=== PATIENT | female | born 1995 | race Caucasian/White ===

== ENCOUNTER 2016-06-28 20:12 | Emergency (ER) | payer OTHER ==
[2016-06-28 21:41] LABS: MEAN CORPUSCULAR HEMOGLOBIN 30.6 pg (27.0-33.0); MEAN CORPUSCULAR HGB CONC 34.3 g/dl (32.0-36.5); MEAN CORPUSCULAR VOLUME 89.3 fl (80.0-96.0); RED CELL DISTRIBUTION WIDTH 11.9 % (11.5-14.5)
--- NOTE | 2016-06-28 22:40 | REPUSA ---
Clinical history: bleeding. Findings: Real-time transabdominal ultrasound images of the pelvis were obtained. A single intrauteri ne gestation is noted. Mean sac diameter measures 27.3 mm. pole measures 5.6 mm. However, no ca rdiac activity is appreciated at this time. An enlarged yolk sac is noted measuring 17.4 mm. There is a subchorionic hemorrhage along the posterior fundal aspect measuring 3.4 x 1.1 x 2.0 cm. The uterus demonstrates normal echotexture and echogenicity. The right ovary measures 4.4 x 3.5 x 2.8 cm. A 2.1 cm simple cyst is seen in the right ovary. The left ovary measures 3.7 x 2.0 x 2.6 cm. No adnexal ma sses are seen. Color Doppler flow is seen within both ovaries. There is no evidence of free fluid. Impression: 1. Intrauterine gestation measuring 6 weeks 2 days by ultrasound measurements, without cardiac activi ty. Findings could represent early versus a missed . Follow-up with serial serum be ta hCG levels is recommended for further evaluation. 2. Posterior fundal subchorionic hemorrhage. 3. Right ovarian corpus luteum cyst.
[2016-06-29] MEDS ORDERED: ACETAMINOPHEN 325 MG TAB As Ordered ONE (01:29)
--- NOTE | 2016-06-29 01:54 | EDDOCDS ---
Physician Documentation [facility] Name: Heidi Munguia Age: 21 yrs Sex: Female : 1995 Arrival Date: 06/28/2016 Time: 20:12 Bed 11 Private MD: Other - Complete Info On Cds Disposition: 06/28 23:48 Critical Care: Critical care not applicable. le Disposition: 06/28/16 23:43 Discharged to Home/Self Care. Impression: Threatened . - Condition is Stable. - Discharge Instructions: Threatened Miscarriage, Pelvic Rest. - Medication Reconciliation, Local Pharmacy Hours form. - Follow up: Burton Pearson, OB; When: Call to arrange an appointment; Reason: Recheck today's complaints, Continuance of care. - Problem is new. - Symptoms are unchanged. - Notes: Keep hydrated Return to the ED for worsening abdominal, heavy vaginal bleeding (saturating a pad-or more- an hour for 3 consecutive hours) fever, dizziness or any other concerns Call [facility] first thing Thursday to schedule follow-up appointment Historical: - Allergies: no known allergies; - Home Meds: 1. Vitamin Oral tab 1 tab once daily (Last dose: 06/27/2016) - PMHx: none; - PSHx: none; - Social history: Smoking status: Patient states was never smoker of tobacco. No barriers to communication noted, The patient speaks fluent Maori, Speaks appropriately for age. - Family history: Not pertinent. - : The pt / caregiver states he / she is not on anticoagulants. Home medication list is obtained from the patient. - Exposure Risk Screening:: None identified. 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 3 in. (160.02 cm) (R); Pain 3/10; 06/29 00:30 BP 133 / 83; Pulse 75; Resp 18; Temp 99.9(TE); Pulse Ox 98% on R/A; Pain 7/10; gregory 01:30 BP 106 / 56; Pulse 74; Resp 18; Pulse Ox 99% on R/A; Pain 7/10; js15 04 20:14 Body Mass Index 19.31 (49.44 kg, 160.02 cm) gr2 MDM: 06/28 21:24 Undress patient appropriately for examination ordered. le 21:24 Set up pelvic ordered. le 21:25 Complete Blood Count Ordered. EDMS 21:25 Hcg, Serum Quantitative Ordered. EDMS 21:25 Type & Screen Ordered. EDMS 21:25 GC & Chlamydia Amplification Ordered. EDMS 21:25 Wet Prep Ordered. EDMS 21:26 US 1st trimester Ordered. EDMS 21:59 Complete Blood Count Reviewed. le 21:59 Wet Prep Reviewed. le 22:30 Financial registration complete. gb 22:36 [facility] Payment Agreement was scanned into [employer] and attached to record. gb 22:43 Hcg, Serum Quantitative Reviewed. le 22:43 Type & Screen Reviewed. le 22:44 -RhoGAM Ultra-Filtered Plus 300 mcg IM once ordered. le 23:04 RHOGAM Ordered. EDMS 06/29 00:56 Other: RHOGAM LAB PAPERWORK was scanned into [employer] and attached to record. ml3 01:11 GC & Chlamydia Amplification Reviewed. cs11 01:11 US 1st trimester Reviewed. cs11 01:13 Hemoglobin & Hematocrit Ordered. EDMS 01:20 Acetaminophen Tablet 650 mg PO once ordered. js15 Administered Medications: 00:23 Drug: -RhoGAM Ultra-Filtered Plus 300 mcg [RhoGAM Ultra-Filtered PLUS 1,500 unit (300 js15 mcg) intramuscular syringe (300 mcg)] Route: IM; Site: right gluteus; 01:00 Follow up: Response: No Adverse Reaction js15 01:19 CANCELLED (Other Intervention Used): Acetaminophen Tablet 650 mg PO once js15 01:32 Drug: Acetaminophen 650 mg [acetaminophen 325 mg tablet (2 tabs)] Route: PO; js15 01:53 Follow up: Response: Pt left department before re-evaluation is appropriate js15 Signatures: Dispatcher [employer] EDMS Kathy Marks, Reg Reg gb MiladJoeKristin, Refuse And Recycling Worker Unit ml3 Danisha Alcantar, SIGNAL REPAIRER SIGNAL REPAIRERCarolyn Topete,PEDRO RN dsJuventino Elliott, DO cs11 Fatuma Fisher RN RN js15 The chart was reviewed and I authenticate all verbal orders and agree with the evaluation and treatment provided.Corrections: (The following items were deleted from the chart) 01:19 01:19 Acetaminophen Tablet 650 mg PO once ordered. js15 js15 Attachments: 06/28 22:36 [facility] Payment Agreement gb MTDD
--- NOTE | 2016-06-29 01:55 | EDDOCDS ---
Nurse's Notes [facility] Name: Heidi Munguia Age: 21 yrs Sex: Female : 1995 Arrival Date: 06/28/2016 Time: 20:12 Bed 11 Private MD: Other - Complete Info On Cds Diagnosis: Threatened Presentation: 06/28 20:16 Presenting complaint: Patient states: 8 weeks . pt states she has been bleeding dsf since last Thursday. pt states the beginning was spotting and now its like her period with period cramps. Risk factors: The patient reports no loss of conciousness prior to arrival. This patient has not had a hysterectomy. This patient has not begun menopause. Adult Sepsis Screening: The patient does not have new or worsening altered mentation. Patient's respiratory rate is less than 22. Systolic blood pressure is greater than 100. Patient has a qSOFA score of 0- Negative Sepsis Screen. Suicide/Homicide risk assessment- the patient denies having any suicidal and/or homicidal ideations and does not present with any other emotional, behavioral or mental health complaints. 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 Transition of care: patient was not received from another setting of care. 20:16 Acuity: KARLI Level 3 dsf 20:16 Method Of Arrival: Walkin/Carried/Asstd dsf Triage Assessment: 20:17 General: Appears in no apparent distress, Behavior is appropriate for age, cooperative. dsf Pain: Location: right lower quadrant and left lower quadrant Pain currently is 4 out of 10 on a pain scale. Quality of pain is described as crampy. HIV screening NA for this visit active duty . : Reports vaginal bleeding that is heavy flow dark red. 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 Vitamin Oral tab 1 tab once daily (Last dose: 06/27/2016) - PMHx: none; - PSHx: none; - Social history: Smoking status: Patient states was never smoker of tobacco. No barriers to communication noted, The patient speaks fluent Korean, Speaks appropriately for age. - Family history: Not pertinent. - : The pt / caregiver states he / she is not on anticoagulants. Home medication list is obtained from the patient. - Exposure Risk Screening:: None identified. Screenin:05 Screening information is obtained from the patient. Fall risk: No risks identified. js15 Assistance ADL's: requires no assistance with activities of daily living. Abuse/DV Screen: The patient / caregiver reports he/she is: not in a situation that causes fear, pain or injury. Nutritional screening: No deficits noted. Advance Directives: There is no active DNR order. home support is adequate. Assessment: 22:04 General: Appears in no apparent distress, Behavior is appropriate for age, cooperative. js15 Pain: Location: left lower quadrant and right lower quadrant Quality of pain is described as crampy. Neurological: Level of Consciousness is awake, alert, obeys commands, Oriented to person, place, time. Respiratory: Airway is patent Respiratory effort is even, unlabored, Respiratory pattern is regular, symmetrical. : Reports vaginal bleeding that is spotty. Derm: Skin is pink, warm & dry. 23:00 Reassessment: Patient appears in no apparent distress at this time. Pt resting on js15 stretcher, family at bedside; awake and alert; respirations even and unlabored; skin pink, warm, dry. 23:30 Reassessment: Pt states that she went to restroom and states "I think I just js15 miscarried. I passed a really big clot and tissue with a little ball of something in the middle.". Danisha Katharine MEDIA RELATIONS INTERN notified. 06/29 00:35 General: Appears in no apparent distress, Behavior is appropriate for age, cooperative. js15 General: Pt states that she is still continuing to saturate pads (2 in 1.5 hrs). This display card writer witnesses large clot and saturated pad before changing to a clean pad. awake and alert, talking to at bedside. will continue to monitor before discharge. Neurological: Level of Consciousness is awake, alert, obeys commands, Oriented to person, place, time, Reports lightheadedness. Cardiovascular: Capillary refill < 3 seconds. Respiratory: Airway is patent Respiratory effort is even, unlabored, Respiratory pattern is regular, symmetrical. Derm: Skin is pink, warm & dry. 01:30 Reassessment: Patient appears in no apparent distress at this time. Patient states js15 feeling better. Patient states symptoms have improved. Pt states that bleeding has lessened; this display card writer witnessed blood clot and small amount of bleeding onto pad; pt awake and alert with steady gait; respirations even and unlabored; skin pink, warm, dry. Vital Signs: 06/28 20:14 BP 132 / 75; Pulse 77; Resp 18 S; Temp 98.7(O); Pulse Ox 99% on R/A; Weight 49.44 kg gr2 (R); Height 5 ft. 3 in. (160.02 cm) (R); Pain 3/10; 06/29 00:30 BP 133 / 83; Pulse 75; Resp 18; Temp 99.9(TE); Pulse Ox 98% on R/A; Pain 7/10; gregory 01:30 BP 106 / 56; Pulse 74; Resp 18; Pulse Ox 99% on R/A; Pain 7/10; js15 06/28 20:14 Body Mass Index 19.31 (49.44 kg, 160.02 cm) gr2 Vitals: 06/28 20:14 Log In Time: June 28, 2016 at 20:14. gr2 ED Course: 20:14 Patient visited by Kristen Coffman. gr2 20:14 Other - Complete Info On Cds is Private Physician. gr2 20:14 Patient moved to Waiting gr2 20:15 Patient visited by Kristen Coffman. gr2 20:15 Patient moved to Pre RCE gr2 20:17 Triage Initiated dsf 21:07 [facility] le 21:08 Patient moved to 11 cz 21:28 Patient visited by Amisha Shultz PCA. gregory 21:30 Patient visited by Danisha Alcantar FNP. le 21:30 Patient visited by Danisha Alcantar FNP. le 21:30 The patient / caregiver is instructed regarding the plan of care and ED course. js15 21:38 Complete Blood Count Sent. js15 21:38 Hcg, Serum Quantitative Sent. js15 21:38 Type & Screen Sent. js15 22:07 Patient visited by Fatuma Fisher RN. js15 22:33 Patient name changed from Heidi\\S\\A\\S\\Munguia\\S\\ to Heidi\\S\\Nelli\\S\\Munguia. EDMS 22:36 [facility] Payment Agreement was scanned into [employer] and attached to record. gb 22:59 US 1st trimester Returned. EDMS 23:16 Patient visited by Amisha Shultz PCA. gregory 23:43 Burton Pearson OB is Referral Physician. le 23:44 RHOGAM Sent. js15 02 00:31 Patient visited by Amisha Shultz PCA. gregory 00:56 Other: RHOGAM LAB PAPERWORK was scanned into [employer] and attached to record. ml3 01:20 Hemoglobin & Hematocrit Sent. js15 01:30 No IV's were initiated during this patient's visit. No procedures done that require js15 assistance. Administered Medications: 00:23 Drug: -RhoGAM Ultra-Filtered Plus 300 mcg [RhoGAM Ultra-Filtered PLUS 1,500 unit (300 js15 mcg) intramuscular syringe (300 mcg)] Route: IM; Site: right gluteus; 01:00 Follow up: Response: No Adverse Reaction js15 01:19 CANCELLED (Other Intervention Used): Acetaminophen Tablet 650 mg PO once js15 01:32 Drug: Acetaminophen 650 mg [acetaminophen 325 mg tablet (2 tabs)] Route: PO; js15 01:53 Follow up: Response: Pt left department before re-evaluation is appropriate js15 Order Results: Lab Order: Complete Blood Count; SPEC'M 06/28/16 21:35 Test: WHITE BLOOD COUNT; Value: 9.0; Range: 4.0-10.0; Units: K/mm3; Status: F Test: RED BLOOD COUNT; Value: 4.03; Range: 4.00-5.40; Units: M/mm3; Status: F Test: HEMOGLOBIN; Value: 12.3; Range: 12.0-16.0; Units: g/dl; Status: F Test: HEMATOCRIT; Value: 36.0; Range: 36.0-47.0; Units: %; Status: F Test: MEAN CORPUSCULAR VOLUME; Value: 89.3; Range: 80.0-96.0; Units: fl; Status: F Test: MEAN CORPUSCULAR HEMOGLOBIN; Value: 30.6; Range: 27.0-33.0; Units: pg; Status: F Test: MEAN CORPUSCULAR HGB CONC; Value: 34.3; Range: 32.0-36.5; Units: g/dl; Status: F Test: RED CELL DISTRIBUTION WIDTH; Value: 11.9; Range: 11.5-14.5; Units: %; Status: F Test: PLATELET COUNT, AUTOMATED; Value: 292; Range: 150-450; Units: k/mm3; Status: F Lab Order: Hcg, Serum Quantitative; [facility] 06/28/16 21:35 Test: HCG, SERUM QUANTITATIVE; Value: [id number]; Units: MIU/ML; Status: F Test Note: ; GESTATIONAL AGE APPROXIMATE HCG RANGE (MIU/ML) 0.2-1 WEEK 5-50 1-2 WEEKS 50-500 2-3 WEEKS 100-5,000 3-4 WEEKS 500-10,000 4-5 WEEKS 1,000-50,000 5-6 WEEKS 10,000-100,000 6-8 WEEKS 15,000-200,000 2-3 MONTHS 10,000-100,000 NON FEMALES LESS THAN 3.0 Patient samples may contain human heterophilic antibodies that could react with immunoassays to give falsely elevated or depressed results. This assay has been designed to minimize interference from heterophilic antibodies. Elevated hCG levels have also been associated with trophoblastic disease and nontrophoblastic neoplasms. The possibility of having these diseases should be considered before a diagnosis of is made. This test is not intended for use as a surrogate marker for aiding in the diagnosis or monitoring the treatment of cancer patients. Siemens Woodruff methodology. Lab Order: Type & Screen; [facility] 06/28/16 21:35 Test: BLOOD TYPE; Value: O NEG; Status: F Test: AB SCREEN (INDIRECT LIV)GEL; Value: NEGATIVE; Status: F Lab Order: GC & Chlamydia Amplification; [facility] 06/28/16 21:45 Test: CHLAMYDIA DNA AMPLIFICATION; Value: NEGATIVE; Range: NEGATIVE; Status: F Test: GC DNA AMPLIFICATION; Value: NEGATIVE; Range: NEGATIVE; Status: F Lab Order: Wet Prep; [facility] 06/28/16 21:45 Test: WET PREP; Value: WET PREP RESULT; Status: F Test: WET PREP; Value: FEW WBC; Status: F Test: WET PREP; Value: MODERATE RBC; Status: F Test: WET PREP; Value: FEW EPITHELIAL CELLS PRESENT; Status: F Lab Order: Hemoglobin & Hematocrit; SPEC'M 06/29/16 01:16 Test: HEMOGLOBIN; Value: 12.6; Range: 12.0-16.0; Units: g/dl; Status: F Test: HEMATOCRIT; Value: 36.9; Range: 36.0-47.0; Units: %; Status: F Radiology Order: US 1st trimester Test: US 1st trimester REASON FOR EXAMINATION: Bleeding; ; Clinical history: bleeding.; Findings: Real-time transabdominal ultrasound images of the pelvis were obtained. A single intrauteri; ne gestation is noted. Mean sac diameter measures 27.3 mm. pole measures 5.6 mm. However, no ca; rdiac activity is appreciated at this time. An enlarged yolk sac is noted measuring 17.4 mm. There is; a subchorionic hemorrhage along the posterior fundal aspect measuring 3.4 x 1.1 x 2.0 cm. The uterus; demonstrates normal echotexture and echogenicity. The right ovary measures 4.4 x 3.5 x 2.8 cm. A 2.1; cm simple cyst is seen in the right ovary. The left ovary measures 3.7 x 2.0 x 2.6 cm. No adnexal ma; sses are seen. Color Doppler flow is seen within both ovaries. There is no evidence of free fluid.; Impression:; 1. Intrauterine gestation measuring 6 weeks 2 days by ultrasound measurements, without cardiac activi; ty. Findings could represent early versus a missed . Follow-up with serial serum be; ta hCG levels is recommended for further evaluation.; 2. Posterior fundal subchorionic hemorrhage.; 3. Right ovarian corpus luteum cyst.; ; Outcome: 06/28 23:43 Discharge ordered by Provider. le 06/29 00:49 Ultrasound Study completed. js15 01:30 Discharge Assessment: Patient awake, alert and oriented x 3. No cognitive and/or js15 functional deficits noted. Patient verbalized understanding of disposition instructions. patient administered narcotics - no. The following High Risk Discharge criteria are identified: None. Discharged to home ambulatory, with family. Condition: stable. Discharge instructions given to patient, Instructed on discharge instructions, follow up and referral plans. Demonstrated understanding of instructions, Pt was receptive of discharge instructions/ teaching. Instructed on Rhogam card. Property sent home with patient. 01:53 Patient left the ED. js15 Signatures: Dispatcher [employer] EDJuan Desai, RN RN cz Kathy Marks, Reg Reg gb Hilary Stinson, Spinning Frame Tender Unit ml3 Danisha Alcantar, MEDIA RELATIONS INTERN MEDIA RELATIONS INTERN Amisha Cornejo, PROTECTION CHIEF INDUSTRIAL PLANT PROTECTION CHIEF INDUSTRIAL PLANT Carolyn Maldonado,RN RN dsf Kristen Coffman gr2 Fatuma Fisher,RN RN js15 MTDD
--- NOTE | 2016-07-01 02:54 | EDDOCDS ---
Physician Documentation [facility] Name: Heidi Munguia Age: 21 yrs Sex: Female : 1995 Arrival Date: 06/28/2016 Time: 20:12 Bed 11 Private MD: Other - Complete Info On Cds Disposition: 06/28 23:48 Critical Care: Critical care not applicable. le Disposition: 06/28/16 23:43 Discharged to Home/Self Care. Impression: Threatened . - Condition is Stable. - Discharge Instructions: Threatened Miscarriage, Pelvic Rest. - Medication Reconciliation, Local Pharmacy Hours form. - Follow up: Burton Pearson, OB; When: Call to arrange an appointment; Reason: Recheck today's complaints, Continuance of care. - Problem is new. - Symptoms are unchanged. - Notes: Keep hydrated Return to the ED for worsening abdominal, heavy vaginal bleeding (saturating a pad-or more- an hour for 3 consecutive hours) fever, dizziness or any other concerns Call [facility] first thing Thursday to schedule follow-up appointment Historical: - Allergies: no known allergies; - Home Meds: 1. Vitamin Oral tab 1 tab once daily (Last dose: 06/27/2016) - PMHx: none; - PSHx: none; - Social history: Smoking status: Patient states was never smoker of tobacco. No barriers to communication noted, The patient speaks fluent Hungarian, Speaks appropriately for age. - Family history: Not pertinent. - : The pt / caregiver states he / she is not on anticoagulants. Home medication list is obtained from the patient. - Exposure Risk Screening:: None identified. 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 3 in. (160.02 cm) (R); Pain 3/10; 06/29 00:30 BP 133 / 83; Pulse 75; Resp 18; Temp 99.9(TE); Pulse Ox 98% on R/A; Pain 7/10; gregory 01:30 BP 106 / 56; Pulse 74; Resp 18; Pulse Ox 99% on R/A; Pain 7/10; js15 04 20:14 Body Mass Index 19.31 (49.44 kg, 160.02 cm) gr2 MDM: 06/28 21:24 Undress patient appropriately for examination ordered. le 21:24 Set up pelvic ordered. le 21:25 Complete Blood Count Ordered. EDMS 21:25 Hcg, Serum Quantitative Ordered. EDMS 21:25 Type & Screen Ordered. EDMS 21:25 GC & Chlamydia Amplification Ordered. EDMS 21:25 Wet Prep Ordered. EDMS 21:26 US 1st trimester Ordered. EDMS 21:59 Complete Blood Count Reviewed. le 21:59 Wet Prep Reviewed. le 22:30 Financial registration complete. gb 22:36 [facility] Payment Agreement was scanned into [employer] and attached to record. gb 22:43 Hcg, Serum Quantitative Reviewed. le 22:43 Type & Screen Reviewed. le 22:44 -RhoGAM Ultra-Filtered Plus 300 mcg IM once ordered. le 23:04 RHOGAM Ordered. EDMS 06/29 00:56 Other: RHOGAM LAB PAPERWORK was scanned into [employer] and attached to record. ml3 01:11 GC & Chlamydia Amplification Reviewed. cs11 01:11 US 1st trimester Reviewed. cs11 01:13 Hemoglobin & Hematocrit Ordered. EDMS 01:20 Acetaminophen Tablet 650 mg PO once ordered. js15 10:59 T-Sheet-- Draft Copy was scanned into [employer] and attached to record. gb Administered Medications: 00:23 Drug: -RhoGAM Ultra-Filtered Plus 300 mcg [RhoGAM Ultra-Filtered PLUS 1,500 unit (300 js15 mcg) intramuscular syringe (300 mcg)] Route: IM; Site: right gluteus; 01:00 Follow up: Response: No Adverse Reaction js15 01:19 CANCELLED (Other Intervention Used): Acetaminophen Tablet 650 mg PO once js15 01:32 Drug: Acetaminophen 650 mg [acetaminophen 325 mg tablet (2 tabs)] Route: PO; js15 01:53 Follow up: Response: Pt left department before re-evaluation is appropriate js15 Signatures: Dispatcher [employer] EDMS Kathy Marks, Reg Reg gb Hilary Stinson, Gold Leaf Gilder Unit ml3 Danisha Alcantar, NUCLEAR OPERATIONS SPECIALIST NUCLEAR OPERATIONS SPECIALISTCarolyn Topete,RN RN dsJuventino Elliott, DO cs11 Fatuma FisherRN RN js15 The chart was reviewed and I authenticate all verbal orders and agree with the evaluation and treatment provided.Corrections: (The following items were deleted from the chart) 01:19 01:19 Acetaminophen Tablet 650 mg PO once ordered. js15 js15 Attachments: 06/28 22:36 [facility] [place] Agreement gb 10:59 T-Sheet-- Draft Copy gb Chart Complete MTDD
--- NOTE | 2016-07-01 02:54 | EDDOCDS ---
Physician Documentation [facility] Name: Heidi Munguia Age: 21 yrs Sex: Female : 1995 Arrival Date: 06/28/2016 Time: 20:12 Bed 11 Private MD: Other - Complete Info On Cds Disposition: 06/28 23:48 Critical Care: Critical care not applicable. le Disposition: 06/28/16 23:43 Discharged to Home/Self Care. Impression: Threatened . - Condition is Stable. - Discharge Instructions: Threatened Miscarriage, Pelvic Rest. - Medication Reconciliation, Local Pharmacy Hours form. - Follow up: Burton Pearson, OB; When: Call to arrange an appointment; Reason: Recheck today's complaints, Continuance of care. - Problem is new. - Symptoms are unchanged. - Notes: Keep hydrated Return to the ED for worsening abdominal, heavy vaginal bleeding (saturating a pad-or more- an hour for 3 consecutive hours) fever, dizziness or any other concerns Call [facility] first thing Thursday to schedule follow-up appointment Historical: - Allergies: no known allergies; - Home Meds: 1. Vitamin Oral tab 1 tab once daily (Last dose: 06/27/2016) - PMHx: none; - PSHx: none; - Social history: Smoking status: Patient states was never smoker of tobacco. No barriers to communication noted, The patient speaks fluent Thai, Speaks appropriately for age. - Family history: Not pertinent. - : The pt / caregiver states he / she is not on anticoagulants. Home medication list is obtained from the patient. - Exposure Risk Screening:: None identified. 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 3 in. (160.02 cm) (R); Pain 3/10; 06/29 00:30 BP 133 / 83; Pulse 75; Resp 18; Temp 99.9(TE); Pulse Ox 98% on R/A; Pain 7/10; gregory 01:30 BP 106 / 56; Pulse 74; Resp 18; Pulse Ox 99% on R/A; Pain 7/10; js15 04 20:14 Body Mass Index 19.31 (49.44 kg, 160.02 cm) gr2 MDM: 06/28 21:24 Undress patient appropriately for examination ordered. le 21:24 Set up pelvic ordered. le 21:25 Complete Blood Count Ordered. EDMS 21:25 Hcg, Serum Quantitative Ordered. EDMS 21:25 Type & Screen Ordered. EDMS 21:25 GC & Chlamydia Amplification Ordered. EDMS 21:25 Wet Prep Ordered. EDMS 21:26 US 1st trimester Ordered. EDMS 21:59 Complete Blood Count Reviewed. le 21:59 Wet Prep Reviewed. le 22:30 Financial registration complete. gb 22:36 [facility] Payment Agreement was scanned into [employer] and attached to record. gb 22:43 Hcg, Serum Quantitative Reviewed. le 22:43 Type & Screen Reviewed. le 22:44 -RhoGAM Ultra-Filtered Plus 300 mcg IM once ordered. le 23:04 RHOGAM Ordered. EDMS 06/29 00:56 Other: RHOGAM LAB PAPERWORK was scanned into [employer] and attached to record. ml3 01:11 GC & Chlamydia Amplification Reviewed. cs11 01:11 US 1st trimester Reviewed. cs11 01:13 Hemoglobin & Hematocrit Ordered. EDMS 01:20 Acetaminophen Tablet 650 mg PO once ordered. js15 10:59 T-Sheet-- Draft Copy was scanned into [employer] and attached to record. gb Administered Medications: 00:23 Drug: -RhoGAM Ultra-Filtered Plus 300 mcg [RhoGAM Ultra-Filtered PLUS 1,500 unit (300 js15 mcg) intramuscular syringe (300 mcg)] Route: IM; Site: right gluteus; 01:00 Follow up: Response: No Adverse Reaction js15 01:19 CANCELLED (Other Intervention Used): Acetaminophen Tablet 650 mg PO once js15 01:32 Drug: Acetaminophen 650 mg [acetaminophen 325 mg tablet (2 tabs)] Route: PO; js15 01:53 Follow up: Response: Pt left department before re-evaluation is appropriate js15 Signatures: Dispatcher [employer] EDMS Kathy Marks, Reg Reg gb Hilary Stinson, Automotive Electrician Helper Unit ml3 Danisha Alcantar, PRODUCTION STATISTICAL CLERK PRODUCTION STATISTICAL CLERKCarolyn Topete,RN RN dsJuventino Elliott, DO cs11 Fatuma FisherRN RN js15 The chart was reviewed and I authenticate all verbal orders and agree with the evaluation and treatment provided.Corrections: (The following items were deleted from the chart) 01:19 01:19 Acetaminophen Tablet 650 mg PO once ordered. js15 js15 Attachments: 06/28 22:36 [facility] [place] Agreement gb 10:59 T-Sheet-- Draft Copy gb Chart Complete MTDD
--- NOTE | 2016-07-01 02:54 | EDDOCDS ---
Nurse's Notes [facility] Name: Heidi Munguia Age: 21 yrs Sex: Female : 1995 Arrival Date: 06/28/2016 Time: 20:12 Bed 11 Private MD: Other - Complete Info On Cds Diagnosis: Threatened Presentation: 06/28 20:16 Presenting complaint: Patient states: 8 weeks . pt states she has been bleeding dsf since last Thursday. pt states the beginning was spotting and now its like her period with period cramps. Risk factors: The patient reports no loss of conciousness prior to arrival. This patient has not had a hysterectomy. This patient has not begun menopause. Adult Sepsis Screening: The patient does not have new or worsening altered mentation. Patient's respiratory rate is less than 22. Systolic blood pressure is greater than 100. Patient has a qSOFA score of 0- Negative Sepsis Screen. Suicide/Homicide risk assessment- the patient denies having any suicidal and/or homicidal ideations and does not present with any other emotional, behavioral or mental health complaints. 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 Transition of care: patient was not received from another setting of care. 20:16 Acuity: KARLI Level 3 dsf 20:16 Method Of Arrival: Walkin/Carried/Asstd dsf Triage Assessment: 20:17 General: Appears in no apparent distress, Behavior is appropriate for age, cooperative. dsf Pain: Location: right lower quadrant and left lower quadrant Pain currently is 4 out of 10 on a pain scale. Quality of pain is described as crampy. HIV screening NA for this visit active duty . : Reports vaginal bleeding that is heavy flow dark red. 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 Vitamin Oral tab 1 tab once daily (Last dose: 06/27/2016) - PMHx: none; - PSHx: none; - Social history: Smoking status: Patient states was never smoker of tobacco. No barriers to communication noted, The patient speaks fluent Divehi, Speaks appropriately for age. - Family history: Not pertinent. - : The pt / caregiver states he / she is not on anticoagulants. Home medication list is obtained from the patient. - Exposure Risk Screening:: None identified. Screenin:05 Screening information is obtained from the patient. Fall risk: No risks identified. js15 Assistance ADL's: requires no assistance with activities of daily living. Abuse/DV Screen: The patient / caregiver reports he/she is: not in a situation that causes fear, pain or injury. Nutritional screening: No deficits noted. Advance Directives: There is no active DNR order. home support is adequate. Assessment: 22:04 General: Appears in no apparent distress, Behavior is appropriate for age, cooperative. js15 Pain: Location: left lower quadrant and right lower quadrant Quality of pain is described as crampy. Neurological: Level of Consciousness is awake, alert, obeys commands, Oriented to person, place, time. Respiratory: Airway is patent Respiratory effort is even, unlabored, Respiratory pattern is regular, symmetrical. : Reports vaginal bleeding that is spotty. Derm: Skin is pink, warm & dry. 23:00 Reassessment: Patient appears in no apparent distress at this time. Pt resting on js15 stretcher, family at bedside; awake and alert; respirations even and unlabored; skin pink, warm, dry. 23:30 Reassessment: Pt states that she went to restroom and states "I think I just js15 miscarried. I passed a really big clot and tissue with a little ball of something in the middle.". Danisha Katharine CARBURETOR REPAIRER notified. 06/29 00:35 General: Appears in no apparent distress, Behavior is appropriate for age, cooperative. js15 General: Pt states that she is still continuing to saturate pads (2 in 1.5 hrs). This staff writer witnesses large clot and saturated pad before changing to a clean pad. awake and alert, talking to at bedside. will continue to monitor before discharge. Neurological: Level of Consciousness is awake, alert, obeys commands, Oriented to person, place, time, Reports lightheadedness. Cardiovascular: Capillary refill < 3 seconds. Respiratory: Airway is patent Respiratory effort is even, unlabored, Respiratory pattern is regular, symmetrical. Derm: Skin is pink, warm & dry. 01:30 Reassessment: Patient appears in no apparent distress at this time. Patient states js15 feeling better. Patient states symptoms have improved. Pt states that bleeding has lessened; this staff writer witnessed blood clot and small amount of bleeding onto pad; pt awake and alert with steady gait; respirations even and unlabored; skin pink, warm, dry. Vital Signs: 06/28 20:14 BP 132 / 75; Pulse 77; Resp 18 S; Temp 98.7(O); Pulse Ox 99% on R/A; Weight 49.44 kg gr2 (R); Height 5 ft. 3 in. (160.02 cm) (R); Pain 3/10; 06/29 00:30 BP 133 / 83; Pulse 75; Resp 18; Temp 99.9(TE); Pulse Ox 98% on R/A; Pain 7/10; gregory 01:30 BP 106 / 56; Pulse 74; Resp 18; Pulse Ox 99% on R/A; Pain 7/10; js15 06/28 20:14 Body Mass Index 19.31 (49.44 kg, 160.02 cm) gr2 Vitals: 06/28 20:14 Log In Time: June 28, 2016 at 20:14. gr2 ED Course: 20:14 Patient visited by Kristen Coffman. gr2 20:14 Other - Complete Info On Cds is Private Physician. gr2 20:14 Patient moved to Waiting gr2 20:15 Patient visited by Kristen Coffman. gr2 20:15 Patient moved to Pre RCE gr2 20:17 Triage Initiated dsf 21:07 [facility]ar [facility] le 21:08 Patient moved to 11 cz 21:28 Patient visited by Amisha Shultz PCA. gregory 21:30 Patient visited by Danisha Alcantar FNP. le 21:30 Patient visited by Danisha Alcantar FNP. le 21:30 The patient / caregiver is instructed regarding the plan of care and ED course. js15 21:38 Complete Blood Count Sent. js15 21:38 Hcg, Serum Quantitative Sent. js15 21:38 Type & Screen Sent. js15 22:07 Patient visited by Fatuma Fisher RN. js15 22:33 Patient name changed from Heidi\\S\\A\\S\\Munguia\\S\\ to Heidi\\S\\Nelli\\S\\Munguia. EDMS 22:36 [facility] [place] Payment Agreement was scanned into [employer] and attached to record. gb 22:59 US 1st trimester Returned. EDMS 23:16 Patient visited by Amisha Shultz PCA. gregory 23:43 Burton Pearson OB is Referral Physician. le 23:44 RHOGAM Sent. js15 02 00:31 Patient visited by Amisha Shultz PCA. gregory 00:56 Other: RHOGAM LAB PAPERWORK was scanned into [employer] and attached to record. ml3 01:20 Hemoglobin & Hematocrit Sent. js15 01:30 No IV's were initiated during this patient's visit. No procedures done that require js15 assistance. 10:59 T-Sheet-- Draft Copy was scanned into [employer] and attached to record. gb Administered Medications: 00:23 Drug: -RhoGAM Ultra-Filtered Plus 300 mcg [RhoGAM Ultra-Filtered PLUS 1,500 unit (300 js15 mcg) intramuscular syringe (300 mcg)] Route: IM; Site: right gluteus; 01:00 Follow up: Response: No Adverse Reaction js15 01:19 CANCELLED (Other Intervention Used): Acetaminophen Tablet 650 mg PO once js15 01:32 Drug: Acetaminophen 650 mg [acetaminophen 325 mg tablet (2 tabs)] Route: PO; js15 01:53 Follow up: Response: Pt left department before re-evaluation is appropriate js15 Order Results: Lab Order: Complete Blood Count; SPEC'M 06/28/16 21:35 Test: WHITE BLOOD COUNT; Value: 9.0; Range: 4.0-10.0; Units: K/mm3; Status: F Test: RED BLOOD COUNT; Value: 4.03; Range: 4.00-5.40; Units: M/mm3; Status: F Test: HEMOGLOBIN; Value: 12.3; Range: 12.0-16.0; Units: g/dl; Status: F Test: HEMATOCRIT; Value: 36.0; Range: 36.0-47.0; Units: %; Status: F Test: MEAN CORPUSCULAR VOLUME; Value: 89.3; Range: 80.0-96.0; Units: fl; Status: F Test: MEAN CORPUSCULAR HEMOGLOBIN; Value: 30.6; Range: 27.0-33.0; Units: pg; Status: F Test: MEAN CORPUSCULAR HGB CONC; Value: 34.3; Range: 32.0-36.5; Units: g/dl; Status: F Test: RED CELL DISTRIBUTION WIDTH; Value: 11.9; Range: 11.5-14.5; Units: %; Status: F Test: PLATELET COUNT, AUTOMATED; Value: 292; Range: 150-450; Units: k/mm3; Status: F Lab Order: Hcg, Serum Quantitative; [facility] 06/28/16 21:35 Test: HCG, SERUM QUANTITATIVE; Value: 38822; Units: MIU/ML; Status: F Test Note: ; GESTATIONAL AGE APPROXIMATE HCG RANGE (MIU/ML) 0.2-1 WEEK 5-50 1-2 WEEKS 50-500 2-3 WEEKS 100-5,000 3-4 WEEKS 500-10,000 4-5 WEEKS 1,000-50,000 5-6 WEEKS 10,000-100,000 6-8 WEEKS 15,000-200,000 2-3 MONTHS 10,000-100,000 NON FEMALES LESS THAN 3.0 Patient samples may contain human heterophilic antibodies that could react with immunoassays to give falsely elevated or depressed results. This assay has been designed to minimize interference from heterophilic antibodies. Elevated hCG levels have also been associated with trophoblastic disease and nontrophoblastic neoplasms. The possibility of having these diseases should be considered before a diagnosis of is made. This test is not intended for use as a surrogate marker for aiding in the diagnosis or monitoring the treatment of cancer patients. [employer] methodology. Lab Order: Type & Screen; 06/28/16 21:35 Test: BLOOD TYPE; Value: O NEG; Status: F Test: AB SCREEN (INDIRECT LIV)GEL; Value: NEGATIVE; Status: F Lab Order: GC & Chlamydia Amplification; [facility] 21:45 Test: CHLAMYDIA DNA AMPLIFICATION; Value: NEGATIVE; Range: NEGATIVE; Status: F Test: GC DNA AMPLIFICATION; Value: NEGATIVE; Range: NEGATIVE; Status: F Lab Order: Wet Prep; [facility] 06/28/16 21:45 Test: WET PREP; Value: WET PREP RESULT; Status: F Test: WET PREP; Value: FEW WBC; Status: F Test: WET PREP; Value: MODERATE RBC; Status: F Test: WET PREP; Value: FEW EPITHELIAL CELLS PRESENT; Status: F Lab Order: Hemoglobin & Hematocrit; SPEC'M 06/29/16 01:16 Test: HEMOGLOBIN; Value: 12.6; Range: 12.0-16.0; Units: g/dl; Status: F Test: HEMATOCRIT; Value: 36.9; Range: 36.0-47.0; Units: %; Status: F Radiology Order: US 1st trimester Test: US 1st trimester REASON FOR EXAMINATION: Bleeding; ; Clinical history: bleeding.; Findings: Real-time transabdominal ultrasound images of the pelvis were obtained. A single intrauteri; ne gestation is noted. Mean sac diameter measures 27.3 mm. pole measures 5.6 mm. However, no ca; rdiac activity is appreciated at this time. An enlarged yolk sac is noted measuring 17.4 mm. There is; a subchorionic hemorrhage along the posterior fundal aspect measuring 3.4 x 1.1 x 2.0 cm. The uterus; demonstrates normal echotexture and echogenicity. The right ovary measures 4.4 x 3.5 x 2.8 cm. A 2.1; cm simple cyst is seen in the right ovary. The left ovary measures 3.7 x 2.0 x 2.6 cm. No adnexal ma; sses are seen. Color Doppler flow is seen within both ovaries. There is no evidence of free fluid.; Impression:; 1. Intrauterine gestation measuring 6 weeks 2 days by ultrasound measurements, without cardiac activi; ty. Findings could represent early versus a missed . Follow-up with serial serum be; ta hCG levels is recommended for further evaluation.; 2. Posterior fundal subchorionic hemorrhage.; 3. Right ovarian corpus luteum cyst.; ; Outcome: 06/28 23:43 Discharge ordered by Provider. le 06/29 00:49 Ultrasound Study completed. js15 01:30 Discharge Assessment: Patient awake, alert and oriented x 3. No cognitive and/or js15 functional deficits noted. Patient verbalized understanding of disposition instructions. patient administered narcotics - no. The following High Risk Discharge criteria are identified: None. Discharged to home ambulatory, with family. Condition: stable. Discharge instructions given to patient, Instructed on discharge instructions, follow up and referral plans. Demonstrated understanding of instructions, Pt was receptive of discharge instructions/ teaching. Instructed on Rhogam card. Property sent home with patient. 01:53 Patient left the ED. js15 Signatures: Dispatcher [employer] EDMS Juan Zhong, RN RN cz Kathy Marks, Reg Reg gb Milad, Kristin, Trial Court Judge Unit ml3 Danisha Alcantar, CARBURETOR REPAIRER CARBURETOR REPAIRERAmisha Herrera, POLITICAL SCIENCE FACULTY MEMBER POLITICAL SCIENCE FACULTY MEMBER Carolyn Maldonado,RN RN dsKristen Bowser gr2 Fatuma Fisher,RN RN js15 Chart Complete MTDD
== END 2016-06-29 01:53 | disposition home or self-care (01) ==
LOC: M ED 20:12
DX: O20.0 Threatened abortion (principal); O26.891 Other specified pregnancy related conditions, first trimester; N83.11 Corpus luteum cyst of right ovary; O36.8910 Maternal care for other specified fetal problems, first trimester, not applicable or unspecified; Z79.899 Other long term (current) drug therapy; Z3A.01 Less than 8 weeks gestation of pregnancy
CPT/HCPCS: 36415; 76801; 84702; 85014; 85018; 85027; 86850; 86900; 86901; 87210; 87491; 87591; 96372; 99284; J2790

== ENCOUNTER 2017-03-23 12:18 | Emergency (ER) | payer OTHER ==
[~2017-03-23] VITALS: Ht 160 cm; Wt 54.1 kg
[2017-03-23 12:19] VITALS: BP 135/80
[2017-03-23] MEDS ORDERED: NITR100C39 PO (14:36)
[2017-03-23] MEDS ORDERED: ZOFR8TAB4 PO (14:38)
[2017-03-23] MEDS ORDERED: ONDANSETRON 4 MG TAB (S0181) PO ONE (14:45)
== END 2017-03-23 14:50 | disposition home or self-care (01) ==
LOC: M ED 12:18
DX: O23.42 Unspecified infection of urinary tract in pregnancy, second trimester (principal); O26.892 Other specified pregnancy related conditions, second trimester; M54.5 Low back pain; Z3A.24 24 weeks gestation of pregnancy

== ENCOUNTER 2017-06-11 02:35 | Inpatient (IN) | payer OTHER ==
[2017-06-11] MEDS: LACTATED RINGER'S 1000 ML IV (05:46)
[2017-06-11 05:59] LABS: HEMATOCRIT 42.7 % (36.0-47.0); HEMOGLOBIN 15.1 g/dl (12.0-16.0); MEAN CORPUSCULAR HGB CONC 35.4 g/dl (32.0-36.5); MEAN CORPUSCULAR VOLUME 90.5 fl (80.0-96.0); PLATELET COUNT, AUTOMATED 211 10^3/uL (150-450); RED BLOOD COUNT 4.72 10^6/uL (4.00-5.40); RED CELL DISTRIBUTION WIDTH 12.7 % (11.5-14.5)
[2017-06-11 06:20] LABS: AMPHETAMINES URINE REFLEX NEGATIVE (NEGATIVE); BARBITURATES URINE REFLEX NEGATIVE (NEGATIVE); BENZODIAZEPINES URINE REFLEX NEGATIVE (NEGATIVE); CANNABINOIDS URINE REFLEX NEGATIVE (NEGATIVE); COCAINE METABOLITE URINE REFLE NEGATIVE (NEGATIVE); METHADONE URINE REFLEX NEGATIVE (NEGATIVE); OPIATES URINE REFLEX NEGATIVE (NEGATIVE); PHENCYCLIDINE URINE REFLEX NEGATIVE (NEGATIVE)
[2017-06-11] MEDS ORDERED: OXYTOCIN 30 UNITS IN 0.9% NaCl 500ML IV BAG (J2590) As Ordered (06:20)
[2017-06-11] MEDS ORDERED: FENTANYL 2MCG/ML ROPIVACAINE 0.2% IN 0.9% NACL 200ML IVBAG As Ordered (06:56)
[2017-06-11] MEDS: LR 1,000 ML IV (06:57)
[2017-06-11] MEDS ORDERED: ONDANSETRON 4MG/2ML VIAL (J2405) IV (08:30)
[2017-06-11] MEDS ORDERED: EPIDURAL/PCA KEYS XX (08:30)
[2017-06-11] MEDS ORDERED: FENTANYL/ROPIVACAINE/NACL BAG 200 ML EPIDURAL (08:30)
[2017-06-11] MEDS ORDERED: REFRIGERATOR IV KEYS XX (08:30)
[2017-06-11] MEDS ORDERED: diphenhydrAMINE INJ 50MG/ML VIAL (J1200) IV (08:30)
[2017-06-11] MEDS ORDERED: PHENYLephrine HCL 500 MCG/5 ML (100MCG/ML) SYRINGE (J2370) IV (08:30)
[2017-06-11] MEDS ORDERED: LACTATED RINGER'S 1000 ML IV (08:30)
[2017-06-11] MEDS ORDERED: ePHEDrine INJ 50 MG/ML VIAL IV (08:30)
[2017-06-11] MEDS ORDERED: NALOXONE INJ 0.4 MG/1 ML VIAL (J2310) IV (08:30)
[2017-06-11] MEDS ORDERED: EPIDURAL COMMENT XX (08:30)
[2017-06-11] MEDS: OXYTOCIN DRIP 30 UNITS in APPROPRIATE DILUENT 1 EA IV (08:46)
[2017-06-11] MEDS ORDERED: MEASLES,MUMPS,RUBELLA VACCINE INJ (MMR-II) (90707) SC (09:00)
[2017-06-11] MEDS ORDERED: DOCUSATE SODIUM 100 MG CAP PO (09:00)
[2017-06-11] MEDS: PRENATAL VITAMINS CHEWABLE TABLET PO (09:00)
[2017-06-11] MEDS ORDERED: ACETAMINOPHEN 500 MG TAB PO (09:00)
[2017-06-11] MEDS ORDERED: RHOGAM 300 MCG (1500 IU) INJ (J2790) IM (09:00)
[2017-06-11] MEDS ORDERED: DIBUCAINE 1% OINTMENT 30GM TOP (09:00)
[2017-06-12] MEDS: IBUPROFEN 800 MG TAB PO (02:51)
[2017-06-12] MEDS: PRENATAL VITAMINS CHEWABLE TABLET PO (07:53)
== END 2017-06-12 12:10 | disposition home or self-care (01) | DRG 775 ==
LOC: M LDO 02:35 → M LDI 05:55 → M OBS 11:32
PROVIDERS: Obstetrics & Gynecology
PROC: 10E0XZZ Delivery of Products of Conception, External Approach (ICD-10-PCS; principal; 2017-06-11)
PROC: 0HQ9XZZ Repair Perineum Skin, External Approach (ICD-10-PCS; 2017-06-11)
DX: O99.02 Anemia complicating childbirth (principal); Z37.0 Single live birth; Z3A.37 37 weeks gestation of pregnancy; Z79.899 Other long term (current) drug therapy; O70.0 First degree perineal laceration during delivery; D64.9 Anemia, unspecified